=== PATIENT | female | born 1970 | race Caucasian/White ===

== ENCOUNTER 2016-11-01 08:10 | Outpatient (CLI) | payer OTHER ==
--- NOTE | 2016-11-01 10:38 | XRAY Report ---
TWO-VIEW BILATERAL KNEES: 11/01/2016 CLINICAL INDICATION: Bilateral pain. FINDINGS: Frontal and lateral views of the bilateral knees were obtained. Postoperative changes of previous bilateral ACL replacements are noted. There is moderate to severe bilateral osteoarthritis, worst in the medial femorotibial compartments. There is no evidence of acute fracture. No effusion is present on either side. IMPRESSION: MODERATE TO SEVERE BILATERAL OSTEOARTHRITIS. BILATERAL POSTOPERATIVE CHANGES. JOB #: [id number] EXT JOB #:[id number]
== END 2016-11-01 08:11 | disposition home or self-care (01) ==
LOC: DI 08:10
PROVIDERS: ATTEND Family Medicine
DX: M17.0 Bilateral primary osteoarthritis of knee (principal)
CPT/HCPCS: 73565

== ENCOUNTER 2016-11-04 12:08 | Outpatient (CLI) | payer OTHER ==
--- NOTE | 2016-11-04 18:55 | MRI Report ---
EXAM: RIGHT WRIST MRI WITHOUT CONTRAST EXAM DATE: 11/04/2016 01:15 PM. CLINICAL HISTORY: Fell, fractured right distal radius. Medial and lateral right wrist pain with decre ased range of motion. COMPARISON: None. TECHNIQUE: Multiplanar, multisequence T1-weighted and fluid-sensitive sequences of the wrist without contrast. Other: None. FINDINGS: Bones: There is subchondral cyst formation in the medial aspect of the distal radius, medial pole of the scaphoid, posterior half of the lunate, and proximal poles of the capitulum and hamate. There is marrow edema in the distal radius, lunate and scaphoid. Cartilage: There is moderate thinning of the hyaline cartilage overlying the foci of subchondral cyst formation and marrow edema in the lunate, scaphoid, distal radius and capitate. The findings are con sistent with prior trauma and secondary osteoarthritis. There is a full-thickness tear of the TFC close to its ulnar attachment. There is high-grade partial thickness tearing of the attachment to the ulna styloid process. The anterior radioulnar ligament is torn. There is posterior subluxation of the ulna, with widening of the distal radial ulnar joint space and joint effusion. Ligaments: There is widening of the scapholunate interval, suggestive of a complete tear of the scaph olunate ligament. The lunotriquetral ligament appears normal. Tendons: There is tendinosis of the extensor carpi ulnaris. There is thickening and increased T2 sign al in the abductor pollicis and extensor pollicis brevis adjacent to the radial styloid process. The findings are consistent with tendinosis and partial-thickness tearing. Musculature: No edema or fatty atrophy. Other: The contents of the carpal tunnel, including the median nerve, are unremarkable. Guyons canal is unremarkable. No ganglion cysts. No joint effusions. The subcutaneous tissues are unremarkable. IMPRESSION: 1. Prior trauma to the wrist, with posttraumatic osteoarthritis of the radiocarpal joint, and the int ercarpal joint between hamate, capitate, triquetrum, lunate and scaphoid. There is associated edema. 2. Full-thickness tear of the TFC close to its ulnar attachment, with disruption of the anterior dist al radial ulnar ligament. There is secondary posterior subluxation of the ulna at the distal radiouln ar joint. 3. Tendinosis and partial-thickness tearing of extensor carpi ulnaris medially, and abductor pollicis and extensor pollicis brevis laterally. [facility] MUSCULOSKELETAL RADIOLOGY SECTION Referring Provider Line: [phone] SITE ID: [id number]
== END 2016-11-04 12:09 | disposition home or self-care (01) ==
LOC: DI 12:08
PROVIDERS: ATTEND Family Medicine
DX: M19.131 Post-traumatic osteoarthritis, right wrist (principal); S52.501S Unspecified fracture of the lower end of right radius, sequela; S63.591A Other specified sprain of right wrist, initial encounter; S66.811A Strain of other specified muscles, fascia and tendons at wrist and hand level, right hand, initial encounter

== ENCOUNTER 2016-12-27 09:29 | Outpatient (CLI) | payer OTHER | END 2016-12-27 09:30 | disposition home or self-care (01) | LOC: SC 09:29 | PROVIDERS: ATTEND Internal Medicine Pulmonary Disease | DX: G47.10 Hypersomnia, unspecified (principal); G47.8 Other sleep disorders; R51 Headache; R06.83 Snoring | CPT/HCPCS: 99203; 99212 ==

== ENCOUNTER 2017-02-25 21:49 | Outpatient (CLI) | payer OTHER | END 2017-02-25 21:50 | disposition home or self-care (01) | LOC: SC 21:49 | PROVIDERS: ATTEND Internal Medicine Pulmonary Disease | DX: G47.10 Hypersomnia, unspecified (principal); R51 Headache | CPT/HCPCS: 95810 ==

== ENCOUNTER 2017-04-05 14:11 | Outpatient (CLI) | payer BC, OTHER | END 2017-04-05 14:12 | disposition home or self-care (01) | LOC: SC 14:11 | PROVIDERS: ATTEND Nurse Practitioner Family | DX: G47.10 Hypersomnia, unspecified (principal); R06.83 Snoring | CPT/HCPCS: 99212; 99214 ==

== ENCOUNTER 2017-11-14 16:02 | Outpatient (CLI) | payer BC | END 2017-11-14 16:03 | disposition home or self-care (01) | LOC: DI.N 16:02 | PROVIDERS: ATTEND Radiology Diagnostic Radiology | DX: Z12.31 Encounter for screening mammogram for malignant neoplasm of breast (principal) | CPT/HCPCS: 77067 ==

== ENCOUNTER 2018-05-19 16:10 | Outpatient (CLI) | payer BC ==
--- NOTE | 2018-05-19 21:57 | XRAY Report ---
Reason: KNEE PAIN Procedure Date: 05/19/2018 Accession Number: [id number] / [id number] Procedure: WCP - Knee 3 View LT CPT Code: FULL RESULT: EXAM: LEFT KNEE RADIOGRAPHY EXAM DATE: 05/19/2018 04:23 PM. CLINICAL HISTORY: Left knee pain. COMPARISON: KNEE 3 VIEW BILAT 11/01/2016 8:17 AM. TECHNIQUE: 3 views. FINDINGS: Bones: No acute fracture or bony lesion. Degenerative spurring. Joints: Changes again seen from left ACL reconstruction. Moderate narrowing of medial compartment, mild narrowing of the lateral compartment and mild to moderate narrowing of the patellofemoral compartment again seen. No knee effusion. No dislocation. Soft Tissues: Normal. No soft tissue swelling. IMPRESSION: 1. Multi-compartmental osteoarthritis of the left knee most extensively involving the medial and patellofemoral compartments without significant change. [facility]
== END 2018-05-19 23:59 | disposition home or self-care (01) ==
LOC: DI.WCP 16:10
PROVIDERS: ATTEND Family Medicine
DX: M17.12 Unilateral primary osteoarthritis, left knee (principal)

== ENCOUNTER 2018-11-15 14:51 | Outpatient (CLI) | payer BC ==
--- NOTE | 2018-11-16 08:15 | Mammography Report ---
Reason: SCREENING MAMMO Procedure Date: 11/15/2018 Accession Number: [id number] / [id number] Procedure: MGN - Screening Mammo Dig Bilat CPT Code: FULL RESULT: EXAM: Screening Mammo Dig Bilat DATE: 11/15/2018 3:15 PM CLINICAL HISTORY: Screening encounter. History of early menses and nulliparity. TECHNIQUE: (B) - Bilateral CC and MLO views were obtained. COMPARISON: 11/14/2017 through 10/11/2012. PARENCHYMAL PATTERN: (A) - The breast(s) demonstrate(s) scattered fibroglandular densities. FINDINGS: There are no suspicious masses, calcifications, or areas of distortion. IMPRESSION: Negative examination. BI-RADS category 1. RECOMMENDATION: (ANNUAL) - Recommend routine annual screening mammography. BI-RADS CATEGORY: (1) - Negative. STANDARD QUALIFYING STATEMENTS: 1. This examination was not reviewed with the aid of Computer-Aided Detection (CAD). 2. A negative or benign imaging report should not preclude biopsy if clinically suspicious findings are present. 3. Dense breasts may obscure an underlying neoplasm. 4. This examination was reviewed without the aid of 3D breast imaging (tomosynthesis).
== END 2018-11-15 14:52 | disposition home or self-care (01) ==
LOC: DI.N 14:51
DX: Z12.31 Encounter for screening mammogram for malignant neoplasm of breast (principal)
CPT/HCPCS: 77067

== ENCOUNTER 2019-01-26 09:22 | Day surgery (SDC) | payer BC ==
[2019-01-26] MEDS ORDERED: LACTATED RINGERS 1,000 ML IV ONE (09:35)
[2019-01-26] MEDS ORDERED: MIDAZOLAM 2 MG/2 ML VIAL IVP ONE (13:40)
[2019-01-26] MEDS ORDERED: fentaNYL 250 MCG/5 ML VIAL IVP ONE (13:40)
[2019-01-26 14:23] VITALS: BP 121/77
== END 2019-01-26 09:23 | disposition home or self-care (01) ==
LOC: SDS 09:22
PROVIDERS: ATTEND Surgery
PROC: 0DBF8ZX Excision of Right Large Intestine, Via Natural or Artificial Opening Endoscopic, Diagnostic (ICD-10-PCS; 2019-01-26)
PROC: 0DBG8ZX Excision of Left Large Intestine, Via Natural or Artificial Opening Endoscopic, Diagnostic (ICD-10-PCS; principal; 2019-01-26 10:45)
DX: K52.9 Noninfective gastroenteritis and colitis, unspecified (principal); R10.9 Unspecified abdominal pain; R11.2 Nausea with vomiting, unspecified; I10 Essential (primary) hypertension; E66.01 Morbid (severe) obesity due to excess calories; Z68.42 Body mass index [BMI] 45.0-49.9, adult
CPT/HCPCS: 45380; J3010; J7120

== ENCOUNTER 2019-02-22 09:59 | Emergency (ER) | payer OTHER, BC ==
[2019-02-22 10:13] VITALS: BP 160/80
--- NOTE | 2019-02-22 10:30 | ED Physician Documentation ---
PD HPI Fall - Stated complaint Stated Complaint: WRIST PX - Chief complaint Chief Complaint: Ext Problem - History obtained from History obtained from: Patient - History of Present Illness Mechanism of injury: Slipped Fall distance: Standing position (She states she slipped on a slippery spot at work and fell forward onto her hands and knees with pain at both anterior knees and both wrists. She also had an inversion of her right ankle with the injury. She is hurting in all those places still after 3 days.) Where injury occurred: Work Timing - onset: How many hours ago (3) Injury(ies) location: Other (Both wrists and both knees and the right ankle) Associated symptoms: No: AMS, Weakness, Paresthesias Worsens with: Movement, Palpation Recently seen: Not recently seen Review of Systems Skin: denies: Abrasion (s), Laceration (s) Neurologic: denies: Focal weakness, Numbness PD PAST MEDICAL HISTORY - Past Medical History Cardiovascular: Hypertension Respiratory: None Endocrine/Autoimmune: None GI: None : None HEENT: None Psych: None Musculoskeletal: Osteoarthritis Derm: None - Past Surgical History Ortho: ACL reconstruction, Arthroscopic surgery, Other - Present Medications Home Medications: Ambulatory Orders Medication Instructions Recorded Confirmed Spironolactone 100 mg PO DAILY 01/25/19 01/26/19 Loratadine [Claritin] 10 mg PO DAILY 01/26/19 01/26/19 Ibuprofen [Motrin] 600 mg PO TID PRN #25 tab 02/22/19 - Allergies Allergies/Adverse Reactions: Allergies Allergy/AdvReac Type Severity Reaction Status Date / Time Penicillins Allergy Edema Verified 01/26/19 09:44 PD ED PE NORMAL - Vitals Vital signs reviewed: Yes - General General: Alert and oriented X 3, Well developed/nourished - Derm Derm: Normal color, Warm and dry - Extremities Extremities: Other (The patient has tenderness at both wrists with the right being a little bit more. Both of them are tender at the dorsal aspect. She has flexion and extension at the wrist on both sides. 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 There is some mild snuffbox tenderness on the left. She is able to move her thumb well in all directions. She has tenderness of both anterior knees without any obvious crepitance or deformity. She can extend fully on both legs with just some pain anteriorly. There is no obvious laxity noted on ligament stress testing. The right ankle is tender along the lateral aspect inferior to the malleolus. There is no effusion noted. The foot itself is not tender.) - Neuro Neuro: Alert and oriented X 3, No motor deficit, No sensory deficit Results - Vitals Vitals: Vital Signs - 24 hr 02/22/19 10:08 Temperature 36.5 C Heart Rate 96 Respiratory 18 Rate Blood Pressure 160/80 H O2 Saturation 100 Oxygen O2 Source Room air - Rads (name of study) johan wrists Radiology: Prelim report reviewed (no frac tures), See rad report johan knees Radiology: Prelim report reviewed (no fractures. Notable arthritis in knees), See rad report right ankle Radiology: Prelim report reviewed (no fractures. ), See rad report PD MEDICAL DECISION MAKING - ED course Complexity details: reviewed results, considered differential, d/w patient Departure - Departure Disposition: 01 Home, Self Care Clinical Impression: Accidental fall Qualifiers: Encounter type: initial encounter Qualified Code(s): W19.XXXA - Unspecified fall, initial encounter Wrist sprain Qualifiers: Encounter type: initial encounter Laterality: unspecified laterality Qualified Code(s): S63.509A - Unspecified sprain of unspecified wrist, initial encounter Ankle sprain Qualifiers: Encounter type: initial encounter Involved ligament of ankle: anterior talofibular ligament Laterality: right Qualified Code(s): S93.491A - Sprain of other ligament of right ankle, initial encounter Knee contusion Qualifiers: Encounter type: initial encounter Laterality: unspecified laterality Qualified Code(s): S80.00XA - Contusion of unspecified knee, initial encounter Condition: Stable Record reviewed to determine appropriate education?: Yes Instructions: ED Sprain Ankle W X Ray, ED Sprain Wrist Follow-Up: Nicolasa Padilla DO [Primary Care Provider] - Prescriptions: Ibuprofen [Motrin] 600 mg PO TID PRN #25 tab PRN Reason: Pain Comments: Use the wrist splints to protect range of motion of the wrist. Gentle range of motion periodically through the day so they do not get stiff. Use some anti-inflammatory such as ibuprofen 3 times a day. Add Tylenol if needed for pains 4 times a day. No heavy lifting repetitive use of the wrist nor prolonged standing for 5 days to help improve the injuries. Recheck if not improved over that timeframe. Forms: Activity restrictions Discharge Date/Time: 02/22/19 13:05
--- NOTE | 2019-02-22 11:53 | XRAY Report ---
Reason: fall onto hands and knees; pains in all Procedure Date: 02/22/2019 Accession Number: [id number] / [id number] Procedure: XR - Knee 3 View BILAT CPT Code: Final Report FULL RESULT: EXAMS: 1. Right Knee Radiography 2. Left Knee Radiography EXAM DATE:02/22/2019 11:03 AM. CLINICAL HISTORY:Fall onto hands and knees; pains in all. COMPARISON: KNEE 3 VIEW BILAT 11/01/2016 8:17 AM. TECHNIQUE: 3 views each. FINDINGS: Right Knee: Bones: No acute fracture lines are seen. Hardware for ACL reconstruction shows expected alignment. Joints: Severe tricompartmental joint space narrowing with osteophytes. No effusion or subluxation. Soft Tissues: Normal. No soft tissue swelling. Left Knee: Bones: No acute fracture lines are seen. Expected alignment of hardware for ACL reconstruction. Joints: No effusion or subluxation. Severe tricompartmental joint space narrowing with osteophytes. Soft Tissues: Normal. No soft tissue swelling. IMPRESSION: 1. No evidence for acute fracture or dislocation of the bilateral knees. 2. Severe bilateral tricompartmental degenerative arthritis is noted, largely unchanged compared to prior. [facility]
--- NOTE | 2019-02-22 11:58 | XRAY Report ---
Reason: fall onto hands and knees; pains in all Procedure Date: 02/22/2019 Accession Number: [id number] / [id number] Procedure: XR - Ankle 3 View RT CPT Code: Final Report FULL RESULT: EXAM: RIGHT ANKLE RADIOGRAPHY EXAM DATE: 02/22/2019 11:13 AM. CLINICAL HISTORY: Fall onto hands and knees; pains in all. COMPARISON: None. TECHNIQUE: 3 views. FINDINGS: Bones: No fracture line is seen. Tiny 3 mm calcification projecting inferior to the medial malleolus is of unclear etiology. Plantar calcaneal spur noted. Joints: No joint effusion or subluxation. Soft Tissues: Normal. No soft tissue swelling. IMPRESSION: 1. Normal alignment of the ankle without evident fracture lines. 2. 3 mm calcification projecting inferior to the medial malleolus of unclear etiology, possibly reflecting sequelae of age-indeterminate avulsion fracture versus degenerative change. [facility]
--- NOTE | 2019-02-22 12:02 | XRAY Report ---
Reason: fall onto hands and knees; pains in all Procedure Date: 02/22/2019 Accession Number: [id number] / [id number] Procedure: XR - Wrist 4 View BILAT CPT Code: Final Report FULL RESULT: EXAMS: BILATERAL WRIST RADIOGRAPHY 4 VIEWS EXAM DATE: 02/22/2019. CLINICAL HISTORY: Bilateral wrist pain. Fell. COMPARISON: KNEE 3 VIEW BILAT 02/22/2019 11:03 AM. TECHNIQUE: PA, oblique, lateral and navicular views of each wrist. FINDINGS: Right: Bones: No fracture or other acute abnormality. 4 mm cyst proximal in the navicular. Ulna plus variance, 5 mm. Joints: No dislocation. Soft Tissues: Normal. No soft tissue swelling. Left: Bones: Normal. No fractures or bone lesions. Joints: Normal. No subluxations. Soft Tissues: Normal. No soft tissue swelling. IMPRESSION: Right Wrist: No fracture or dislocation. 4 mm benign cyst In the navicular. Ulna plus variance, 5 mm. Left Wrist: Normal examination. [facility]
== END 2019-02-22 13:05 | disposition home or self-care (01) ==
LOC: ED 09:59
DX: S63.509A Unspecified sprain of unspecified wrist, initial encounter (principal); S80.00XA Contusion of unspecified knee, initial encounter; S93.491A Sprain of other ligament of right ankle, initial encounter; W01.0XXA Fall on same level from slipping, tripping and stumbling without subsequent striking against object, initial encounter; Y99.0 Civilian activity done for income or pay; M17.0 Bilateral primary osteoarthritis of knee; I10 Essential (primary) hypertension
CPT/HCPCS: 99283; 99284

== ENCOUNTER 2019-07-25 19:25 | Outpatient (CLI) | payer BC | END 2019-07-25 19:26 | disposition home or self-care (01) | LOC: COV 19:25 | PROVIDERS: ATTEND Family Medicine | DX: M79.10 Myalgia, unspecified site (principal); R53.83 Other fatigue; R68.83 Chills (without fever); J02.9 Acute pharyngitis, unspecified | CPT/HCPCS: 81599 ==

== ENCOUNTER 2020-06-25 07:48 | Outpatient (CLI) | payer BC ==
[2020-06-25 11:57] LABS: BASOPHILS % (AUTO) 0.6 %; EOSINOPHILS # (AUTO) 0.2 10^3/uL (0.0-0.7); EOSINOPHILS % (AUTO) 2.9 %; HCT - HEMATOCRIT 39.3 % (37.0-47.0); HGB - HEMOGLOBIN 12.5 g/dL (12.0-16.0); LYMPHOCYTES # (AUTO) 1.3 10^3/uL (1.5-3.5); LYMPHOCYTES % (AUTO) 24.2 %; MEAN CORPUSCULAR HEMOGLOBIN 32.2 pg (27.0-31.0); MEAN CORPUSCULAR HGB CONC 31.8 g/dL (32.0-36.0); MEAN CORPUSCULAR VOLUME 101.3 fL (81.0-99.0); MEAN PLATELET VOLUME 10.1 fL (7.9-10.8); MONOCYTES # (AUTO) 0.7 10^3/uL (0.0-1.0); MONOCYTES % (AUTO) 12.3 %; NEUTROPHILS # (AUTO) 3.3 10^3/uL (1.5-6.6); NEUTROPHILS % (AUTO) 59.8 %; PLT - PLATELET COUNT 285 10^3/uL (130-450); RED BLOOD COUNT 3.88 10^6/uL (4.20-5.40); RED CELL DISTRIBUTION WIDTH 13.6 % (12.0-15.0); WHITE BLOOD COUNT 5.5 x10^3/uL (4.8-10.8)
[2020-06-25 12:44] LABS: ALBUMIN 4.6 g/dL (3.2-5.5); ALBUMIN/GLOBULIN RATIO 1.5 (1.0-2.2); ALKALINE PHOSPHATASE 64 IU/L (42-121); ALT ALANINE AMINOTRANSFERASE 23 IU/L (10-60); AST ASPARTATE AMINOTRANSFERASE 21 IU/L (10-42); BILIRUBIN,TOTAL 0.5 mg/dL (0.2-1.0); BUN - BLOOD UREA NITROGEN 16 mg/dL (6-20); CALCIUM 9.3 mg/dL (8.5-10.3); CARBON DIOXIDE - CO2 26 mmol/L (21-32); CHLORIDE 101 mmol/L (101-111); CHOL/HDL RATIO 3.9 (<4.4); CHOLESTEROL 229 mg/dL; CREATININE 0.8 mg/dL (0.4-1.0); GFR - MDRD 75 (>89); GLUCOSE 99 mg/dL (70-100); HDL CHOLESTEROL 59 mg/dL; LDL CHOLESTEROL,CALCULATED 155 mg/dL; LDL/HDL RATIO 2.6 (<4.4); POTASSIUM 4.2 mmol/L (3.5-5.0); SODIUM 137 mmol/L (135-145); TOTAL PROTEIN 7.6 g/dL (6.7-8.2); TRIGLYCERIDES 76 mg/dL; VLDL CHOLESTEROL 15 mg/dL
[2020-06-25 12:53] LABS: THYROID STIMULATING HORMONE 1.5 uIU/mL (0.34-5.60)
== END 2020-06-25 23:59 | disposition home or self-care (01) ==
LOC: LAB.WCP 07:48
PROVIDERS: ATTEND Family Medicine
DX: I10 Essential (primary) hypertension (principal)
CPT/HCPCS: 36415; 80053; 80061; 83721; 84443; 85025

== ENCOUNTER 2020-07-02 10:37 | Outpatient (CLI) | payer BC ==
--- NOTE | 2020-07-03 15:19 | Mammography Report ---
BILATERAL DIGITAL SCREENING MAMMOGRAM 3D/2D: 07/02/2020 CLINICAL: Routine screening. Comparison is made to exams dated: 11/15/2018 mammogram, 11/14/2017 mammogram, 12/02/2014 mammogram, an d 09/20/2013 mammogram - [facility]. There are scattered fibroglandular elements in both breasts. No significant masses, calcifications, or other findings are seen in either breast. There has been no significant interval change. IMPRESSION: NEGATIVE There is no mammographic evidence of malignancy. A 1 year screening mammogram is recommended. This exam was interpreted at Station ID: [id number]. NOTE: For mammograms, a report in lay terms will be sent to the patient. Approximately 15% of breast malignancies will not be visualized mammographically. In the management of a palpable breast mass, a negative mammogram must not discourage biopsy of a clinically suspicious lesion. Electronically Signed By: Charles Roach M.D. slc/penrad:07/02/2020 15:53:35 ACR BI-RADS Category 1: Negative 3341F PARENCHYMAL PATTERN: (A) - The breast(s) demonstrate(s) scattered fibroglandular densities. BI-RADS CATEGORY: (1) - 1 RECOMMENDATION: (ANNUAL) - Recommend routine annual screening mammography. [id number] 1 year screening LATERALITY: (B)
== END 2020-07-02 10:38 | disposition home or self-care (01) ==
LOC: DI.N 10:37
DX: Z12.31 Encounter for screening mammogram for malignant neoplasm of breast (principal)